=== PATIENT | female | born 1990 | race Caucasian/White ===

== ENCOUNTER → 2016-10-14 | Outpatient (REF) ==
[~2016-10-14] MED LIST: BENADRYL50 MG PO; CLARITIN 1010 MG/TAB PO; MOTRIN 600600 MG/TAB PO; PEPCID 20MG TAB20 MG PO; PRENATAL1 TA1 PO; TRIAMCINOLONE0.1% TOP; TYLENOL 325MG325 MG PO
== END ==
LOC: WSOH 14:48
DX: Z02.89 Encounter for other administrative examinations (principal)

== ENCOUNTER → 2016-10-30 | Outpatient (REF) | LOC: WSOH 12:16 | DX: Z23 Encounter for immunization (principal) ==

== ENCOUNTER → 2016-12-04 | Outpatient (REF) | LOC: WSOH 09:38 | DX: Z02.89 Encounter for other administrative examinations (principal) ==